=== PATIENT | male | born 1955 | race Caucasian/White ===

== ENCOUNTER 2018-07-11 10:57 | Emergency (ER) | payer BC, OTHER ==
[2018-07-11] MEDS: LIDOCAINE 1% (MPF) 5 ML VIAL INJ (12:18)
[2018-07-11] MEDS: DIPHTH/TET/ACEL PERTUSS (ADULT) 0.5 ML VIAL IM* (12:43)
== END 2018-07-11 13:53 | disposition home or self-care (01) ==
LOC: FTE 10:57
DX: S61.412A Laceration without foreign body of left hand, initial encounter (principal); W26.0XXA Contact with knife, initial encounter; Y92.89 Other specified places as the place of occurrence of the external cause; Z23 Encounter for immunization
CPT/HCPCS: 12002; 90471; 90715; 99283-25